=== PATIENT | female | born 1970 | race Caucasian/White ===

== ENCOUNTER 2020-06-18 11:47 | Outpatient (CLI) | payer BC | END 2020-06-18 11:48 | disposition home or self-care (01) | LOC: ULT 11:47 | PROVIDERS: ATTEND Physician Assistant | DX: M79.605 Pain in left leg (principal); R22.42 Localized swelling, mass and lump, left lower limb; M71.22 Synovial cyst of popliteal space [Baker], left knee ==

== ENCOUNTER 2020-08-13 15:48 | Outpatient (CLI) | payer BC | END 2020-08-13 15:49 | disposition home or self-care (01) | LOC: DTY/OP 15:48 | PROVIDERS: ATTEND Surgery | DX: I10 Essential (primary) hypertension (principal) | CPT/HCPCS: 97802 ==

== ENCOUNTER 2020-08-26 12:07 | Outpatient (CLI) | payer BC | END 2020-08-26 12:08 | disposition home or self-care (01) | LOC: BICRAD 12:07 | PROVIDERS: ATTEND Family Medicine | DX: R76.11 Nonspecific reaction to tuberculin skin test without active tuberculosis (principal) | CPT/HCPCS: 71046 ==

== ENCOUNTER 2021-02-19 17:23 | Outpatient (CLI) | payer BC ==
[2021-02-19 20:42] LABS: Hemoglobin A1c 5.2 % (4.0-6.0)
[2021-02-20 12:10] LABS: SARS-CoV-2 PCR by NAA Not Detected (NotDetected)
== END 2021-02-19 17:24 | disposition home or self-care (01) ==
LOC: LABBT 17:23
PROVIDERS: ATTEND Surgery
DX: Z01.818 Encounter for other preprocedural examination (principal); Z20.822 Contact with and (suspected) exposure to COVID-19
CPT/HCPCS: 82040; 82565; 83036; 85014; 93005; 93010; U0003; U0005

== ENCOUNTER 2021-02-19 18:00 | Inpatient (IN) | payer BC ==
[2021-02-19 15:03] VITALS: BMI 42.5
[2021-02-23] MEDS ORDERED: Promethazine HCl 25 MG/ML VIAL ONE ×2 (06:40→11:42)
[2021-02-23] MEDS ORDERED: SUGAMMADEX SODIUM 200 MG/2 ML VIAL ONE (06:40)
[2021-02-23] MEDS ORDERED: Enoxaparin Sodium 40 MG/0.4 ML SYRINGE ONE (06:48)
[2021-02-23] MEDS ORDERED: cefOXitin Sodium/Dextrose 2 GM/50 ML BAG ONE (06:49)
[2021-02-23] MEDS ORDERED: Scopolamine 1.5 mg/72 hour Patch ONE (06:49)
[2021-02-23] MEDS ORDERED: Bupivacaine 0.25% HCL 30 ML VIAL ONE (09:32)
[2021-02-23] MEDS ORDERED: Lidocaine 1% w/Epinephrine 1:100K 20 ML VIAL ONE (09:32)
[2021-02-23] MEDS ORDERED: diphenhydrAMINE 50 MG/ML VIAL IVP PRN (09:39)
[2021-02-23] MEDS ORDERED: Dextrose 50% Abboject 50 ML SYRINGE SLOW IVP PRN (09:39)
[2021-02-23] MEDS ORDERED: Insulin Regular 300 UNITS/3 ML VIAL SC PRN (09:39)
[2021-02-23] MEDS ORDERED: Morphine 2 MG/ML VIAL SLOW IVP PRN (09:39)
[2021-02-23] MEDS ORDERED: Dextrose 5% in Water 1,000 ML IV PRN (09:39)
[2021-02-23] MEDS ORDERED: Hydrocodone-Acetamin 15 ML UDCUP PO PRN (09:39)
[2021-02-23] MEDS ORDERED: hydrALAZINE 20 MG/ML VIAL SLOW IVP PRN (09:39)
[2021-02-23] MEDS ORDERED: Fentanyl 250 MCG/5 ML VIAL ONE (09:44)
[2021-02-23] MEDS ORDERED: Lidocaine 1% PF 5 ML VIAL ONE (09:53)
[2021-02-23] MEDS ORDERED: PROPOFOL 200 MG/20 ML VIAL ONE (09:53)
[2021-02-23] MEDS ORDERED: Rocuronium Bromide 10 MG/ML (10ML VIAL) ONE (09:53)
[2021-02-23] MEDS ORDERED: Dexamethasone 20 MG/5 ML VIAL ONE (09:53)
[2021-02-23] MEDS ORDERED: diphenhydrAMINE 50 MG/ML VIAL ONE (09:53)
[2021-02-23] MEDS ORDERED: ePHEDrine 50 MG/ML VIAL ONE (09:53)
[2021-02-23] MEDS ORDERED: Ondansetron PF 4 MG/2 ML Vial ONE (09:53)
[2021-02-23] MEDS ORDERED: Morphine 4 MG/ML VIAL SLOW IVP PRN (10:18)
[2021-02-23] MEDS ORDERED: Fentanyl 100 MCG/2 ML VIAL ONE (11:39)
[2021-02-23] MEDS: D5 1/2 NS w/20 mEq KCL 1,000 ML IV SCH ×2 (13:12→19:58)
[2021-02-23] MEDS: Ketorolac Tromethamine 30 MG/ML VIAL IVP SCH ×3 (13:12→23:30)
[2021-02-23] MEDS: Ondansetron PF 4 MG/2 ML Vial IVP PRN ×2 (13:53→22:17)
[2021-02-23] MEDS: Promethazine HCl 25 MG/ML VIAL IM PRN ×2 (15:07→23:42)
[2021-02-23] MEDS ORDERED: Gabapentin 400 MG CAP PO SCH (21:00)
[2021-02-23] MEDS ORDERED: Non-Formulary Item 1 EACH (Bupropion Hcl [Bupropion Xl] 300 MG Tab.Er.24h) PO SCH (21:00)
[2021-02-23] MEDS ORDERED: Bupropion 150 MG XL TAB PO SCH (21:00)
[2021-02-23] MEDS ORDERED: GABAPENTIN ENACARBIL 300 MG PO SCH (21:00)
[2021-02-24] MEDS: D5 1/2 NS w/20 mEq KCL 1,000 ML IV SCH ×2 (01:03→05:11)
[2021-02-24 05:03] VITALS: TEMP 97.8
[2021-02-24] MEDS: Ketorolac Tromethamine 30 MG/ML VIAL IVP SCH (05:10)
[2021-02-24] MEDS: Promethazine HCl 25 MG/ML VIAL IM PRN (05:19)
[2021-02-24 06:09] LABS: #Monocytes 0.6 thou/uL (0.11-0.59); #Neutrophils 6.7 thou/uL (1.40-6.50); %Basophils 0.2 % (0.0-1.0); %Eosinophils 0.1 % (0.0-10.0); %Lymphocytes 11.8 % (21.0-51.0); %Monocytes 7.1 % (0.0-10.0); %Neutrophils 80.7 % (42.0-75.0); Mean Corpuscular HGB CONC 33.9 g/dL (32.0-36.0); Mean Corpuscular Hemoglobin 32.5 pg (27.0-31.0); Mean Corpuscular Volume 95.7 fL (78.0-98.0); Mean Platelet Volume 9.5 fL (7.4-10.4); Platelet Count 172 thou/uL (130-400); RBC Distribution Width 11.1 % (11.5-14.5); White Blood Cell (WBC) Count 8.3 thou/uL (4.8-10.8)
[2021-02-24 06:35] LABS: Anion Gap 10 mmol/L (10-20); BUN (Urea Nitrogen) 14 mg/dL (7.0-18.7); Calc. Creatinine Clearance 121 mL/min (70-130); Calcium 9.2 mg/dL (7.8-10.44); Carbon Dioxide 24 mmol/L (22-29); Chloride 107 mmol/L (98-107); Glucose 140 mg/dL (70-105); Potassium 4.6 mmol/L (3.5-5.1); Sodium 136 mmol/L (136-145)
[2021-02-24] MEDS ORDERED: Enoxaparin Sodium 40 MG/0.4 ML SYRINGE SC SCH (09:00)
[2021-02-24] MEDS ORDERED: Thyroid 60 MG TAB PO SCH (09:00)
[2021-02-24] MEDS ORDERED: Pantoprazole 40 MG VIAL IVP SCH (09:00)
[2021-02-24] MEDS: Ondansetron PF 4 MG/2 ML Vial IVP PRN (09:11)
[2021-02-24 11:38] VITALS: BP 108/63
== END 2021-02-24 12:20 | disposition home or self-care (01) | DRG 620 ==
LOC: SURG A 02-23 06:18
PROVIDERS: ADMIT Surgery; ATTEND Surgery
PROC: 0DB64Z3 Excision of Stomach, Percutaneous Endoscopic Approach, Vertical (ICD-10-PCS; principal; 2021-02-23)
PROC: 8E0Y4CZ Robotic Assisted Procedure of Lower Extremity, Percutaneous Endoscopic Approach (ICD-10-PCS; 2021-02-23)
DX: E88.81 Metabolic syndrome and other insulin resistance (principal); Z68.41 Body mass index [BMI] 40.0-44.9, adult; E66.01 Morbid (severe) obesity due to excess calories; I10 Essential (primary) hypertension; G43.909 Migraine, unspecified, not intractable, without status migrainosus; E03.9 Hypothyroidism, unspecified; M06.9 Rheumatoid arthritis, unspecified; M79.7 Fibromyalgia; F32.A Depression, unspecified; E78.5 Hyperlipidemia, unspecified; E11.9 Type 2 diabetes mellitus without complications; F41.9 Anxiety disorder, unspecified; Z90.710 Acquired absence of both cervix and uterus; Z79.899 Other long term (current) drug therapy; Z79.890 Hormone replacement therapy
CPT/HCPCS: 36415; 80048; 85025; 88307; C9113; J0694; J1100; J1200; J1650; J1885; J2270; J2405; J2550; J2704; J3010; J3480; J3490; S0020

== ENCOUNTER 2021-07-10 10:14 | Day surgery (SDC) | payer BC ==
[2021-07-09 09:15] VITALS: BMI 33.7
[2021-07-10 10:59] LABS: #Basophils 0.1 thou/uL (0.0-0.2); #Eosinphils 0.2 thou/uL (0.0-0.7); #Lymphocytes 1.9 thou/uL (1.20-3.40); #Monocytes 0.4 thou/uL (0.11-0.59); #Neutrophils 2.5 thou/uL (1.40-6.50); %Basophils 1.3 % (0.0-1.0); %Eosinophils 4.2 % (0.0-10.0); %Lymphocytes 37.3 % (21.0-51.0); %Monocytes 7.7 % (0.0-10.0); %Neutrophils 49.5 % (42.0-75.0); Mean Corpuscular HGB CONC 33.4 g/dL (32.0-36.0); Mean Corpuscular Hemoglobin 32.5 pg (27.0-31.0); Mean Corpuscular Volume 97.5 fL (78.0-98.0); Mean Platelet Volume 8.9 fL (7.4-10.4); Platelet Count 208 thou/uL (130-400); RBC Distribution Width 12.4 % (11.5-14.5); Red Blood Cell (RBC) Count 4.31 mill/uL (4.20-5.40); White Blood Cell (WBC) Count 5.1 thou/uL (4.8-10.8)
[2021-07-10 11:07] VITALS: BP 114/77; TEMP 98
[2021-07-10 11:15] LABS: ALT (SGPT) 27 U/L (8-55); AST (SGOT) 31 U/L (5-34); Albumin 4.4 g/dL (3.5-5.0); Alkaline Phosphatase 96 U/L (40-110); Anion Gap 12 mmol/L (10-20); BUN (Urea Nitrogen) 17 mg/dL (7.0-18.7); Bilirubin, Total 0.4 mg/dL (0.2-1.2); Calc. Creatinine Clearance 113 mL/min (70-130); Calcium 9.6 mg/dL (7.8-10.44); Carbon Dioxide 27 mmol/L (22-29); Chloride 105 mmol/L (98-107); Globulin 2.3 g/dL (2.4-3.5); Glucose 81 mg/dL (70-105); Protein, Total 6.7 g/dL (6.0-8.3); Sodium 140 mmol/L (136-145)
[2021-07-10 13:14] LABS: Color Of CSF Supernatant COLORLESS (Colorless); Tube # 1; Unspun CSF Color COLORLESS (Colorless)
[2021-07-10 13:28] LABS: CSF, Glucose 59 mg/dl (40-70); CSF, Protein 17 mg/dL (15-40)
[2021-07-10 13:52] LABS: CSF Source CSF; Clarity Clear (Clear); Tube # 4
[2021-07-14 16:14] LABS: CSF IgG Index 0.4 (0.0-0.7); CSF IgG Synthesis Rate -2.2 mg/day (-9.9 TO +3.3); IgG Serum 498 mg/dL (586-1602); IgG/Alb CSF 0.04 (0.00-0.25)
[2021-07-17 11:18] LABS: Methylmalonic Acid 139 nmol/L (0-378)
== END 2021-07-10 13:13 | disposition home or self-care (01) ==
LOC: RAD 10:14
PROVIDERS: ATTEND Psychiatry & Neurology Neurology
PROC: 00JU3ZZ Inspection of Spinal Canal, Percutaneous Approach (ICD-10-PCS; principal; 2021-07-10)
DX: R41.82 Altered mental status, unspecified (principal); R47.81 Slurred speech; M79.7 Fibromyalgia; M06.9 Rheumatoid arthritis, unspecified; G62.9 Polyneuropathy, unspecified; I10 Essential (primary) hypertension; E78.5 Hyperlipidemia, unspecified; K21.9 Gastro-esophageal reflux disease without esophagitis; Z79.890 Hormone replacement therapy; Z79.899 Other long term (current) drug therapy; Z88.0 Allergy status to penicillin; Z88.1 Allergy status to other antibiotic agents; Z88.2 Allergy status to sulfonamides; Z88.5 Allergy status to narcotic agent; Z91.018 Allergy to other foods
CPT/HCPCS: 36415; 62270; 80053; 82040; 82042; 82525; 82607; 82746; 82784; 82945; 83090; 83916; 83921; 84157; 84425; 85025; 89051

== ENCOUNTER 2021-07-31 10:24 | Emergency (ER) | payer BC ==
[2021-07-31 10:47] LABS: #Basophils 0.1 thou/uL (0.0-0.2); #Eosinphils 0.3 thou/uL (0.0-0.7); #Lymphocytes 2.3 thou/uL (1.20-3.40); #Monocytes 0.6 thou/uL (0.11-0.59); #Neutrophils 2.5 thou/uL (1.40-6.50); %Basophils 1.1 % (0.0-1.0); %Eosinophils 5.5 % (0.0-10.0); %Neutrophils 43.4 % (42.0-75.0); Mean Corpuscular HGB CONC 33.6 g/dL (32.0-36.0); Mean Corpuscular Volume 95.3 fL (78.0-98.0); Mean Platelet Volume 8.6 fL (7.4-10.4); Platelet Count 234 thou/uL (130-400); RBC Distribution Width 11.8 % (11.5-14.5); Red Blood Cell (RBC) Count 4.36 mill/uL (4.20-5.40); White Blood Cell (WBC) Count 5.8 thou/uL (4.8-10.8)
[2021-07-31 11:03] LABS: Prothrombin Time 13.1 sec (12.0-14.7)
[2021-07-31 11:04] LABS: PTT 31.1 sec (22.9-36.1)
[2021-07-31 11:12] LABS: ALT (SGPT) 32 U/L (8-55); AST (SGOT) 39 U/L (5-34); Albumin 4.4 g/dL (3.5-5.0); Alkaline Phosphatase 107 U/L (40-110); Anion Gap 14 mmol/L (10-20); BUN (Urea Nitrogen) 8 mg/dL (7.0-18.7); Bilirubin, Total 0.4 mg/dL (0.2-1.2); Calc. Creatinine Clearance 0 mL/min (70-130); Calcium 9.7 mg/dL (7.8-10.44); Carbon Dioxide 26 mmol/L (22-29); Chloride 104 mmol/L (98-107); Globulin 2.5 g/dL (2.4-3.5); Glucose 85 mg/dL (70-105); Potassium 3.6 mmol/L (3.5-5.1); Protein, Total 6.9 g/dL (6.0-8.3); Sodium 140 mmol/L (136-145)
[2021-07-31] MEDS ORDERED: Aspirin Chewable 81 MG TAB ONE (11:23)
[2021-07-31] MEDS ORDERED: Metoclopramide HCl 10 MG/2 ML VIAL ONE (11:23)
[2021-07-31] MEDS ORDERED: Acetaminophen 500 MG TAB ONE (11:23)
[2021-07-31] MEDS ORDERED: diphenhydrAMINE 12.5 MG/5 ML UDCUP ONE (11:23)
[2021-07-31] MEDS ORDERED: diphenhydrAMINE 50 MG/ML VIAL ONE (11:24)
[2021-07-31 11:47] LABS: Iron 85 ug/dL (50-170); Iron Binding Capacity, Total 328 mcg/dL (265-497); Magnesium 2.1 mg/dL (1.6-2.6)
[2021-07-31 12:01] LABS: Ferritin 325.19 ng/mL (10-291)
[2021-07-31] MEDS ORDERED: Iopamidol-370 76% 500 ML 1 ML ONE (14:43)
== END 2021-07-31 15:49 | disposition home or self-care (01) ==
LOC: ERS 10:24
DX: G43.909 Migraine, unspecified, not intractable, without status migrainosus (principal); M06.9 Rheumatoid arthritis, unspecified
CPT/HCPCS: 36415; 36416; 70450; 70496; 70498; 71045; 80053; 82607; 82728; 82746; 83540; 83550; 83735; 84484; 85025; 85610; 85730; 93005; 94760; 96365; 96366; 96375; J1200; J2765; Q0163; Q9967

== ENCOUNTER 2023-03-24 08:32 | Day surgery (SDC) | payer BC ==
[2023-03-24] MEDS ORDERED: Cosyntropin 250 MCG VIAL SLOW IVP SCH (08:45)
[2023-03-24 09:33] VITALS: BP 135/65; TEMP 98.1
[2023-03-24] MEDS ORDERED: FLU VACC QS2023-24(6MOS UP)/PF 60 MCG/0.5 ML SYRINGE IM ONE (10:00)
== END 2023-03-24 11:04 | disposition home or self-care (01) ==
LOC: ONC/OP 08:32
PROVIDERS: ATTEND Family Medicine
DX: E03.9 Hypothyroidism, unspecified (principal); R55 Syncope and collapse
CPT/HCPCS: 36415; 80400; 82024; 96374; J0834

== ENCOUNTER 2024-02-10 14:13 | Outpatient (CLI) | payer OTHER | END 2024-02-10 14:14 | disposition home or self-care (01) | LOC: BICMAMMO 14:13 | PROVIDERS: ATTEND Family Medicine | DX: N64.52 Nipple discharge (principal); N61.0 Mastitis without abscess | CPT/HCPCS: 77066; G0279 ==